=== PATIENT | female | born 1955 | race Caucasian/White ===

== ENCOUNTER → 2024-03-09 06:34 | Day surgery (SDC) | payer MEDICARE, OTHER, SELFPAY | LOC: GI 06:34 | PROVIDERS: ATTENDING PHYSICIAN Internal Medicine Gastroenterology | DX: Z12.11 Encounter for screening for malignant neoplasm of colon (principal); K63.5 Polyp of colon; K57.30 Diverticulosis of large intestine without perforation or abscess without bleeding; K64.8 Other hemorrhoids; Z86.010 Personal history of colon polyps | CPT/HCPCS: 45380; 88305 ==

== ENCOUNTER → 2024-04-17 06:51 | Outpatient (REF) | payer MEDICARE, OTHER, SELFPAY ==
[2024-04-17 08:10] LABS: ALT (SGPT) 17 U/L (0-35); AST (SGOT) 21 U/L (14-36); Albumin 4.8 g/dl (3.5-5.0); Alkaline Phosphatase 78 U/L (38-126); Blood Urea Nitrogen 21 mg/dl (7-17); Calcium 10.6 mg/dl (8.4-10.2); Carbon Dioxide 24 mmol/L (22-30); Chloride 109 mmol/L (98-107); Glucose 128 mg/dl (70-99); Potassium 4.4 mmol/L (3.5-5.1); Sodium 141 mmol/L (135-145); Total Bilirubin 0.5 mg/dl (0.2-1.3); Total Protein 7.5 g/dl (6.3-8.2); eGFR > 60.00
[2024-04-18 13:32] LABS: DHEA Sulfate 46 ug/dL (9-246)
[2024-04-18 17:42] LABS: Adrenocorticotropic Hormone <1.5 pg/mL (7.2-63.3)
== END ==
LOC: REG 06:51
PROVIDERS: ATTENDING PHYSICIAN Physician Assistant; FAMILY PHYSICIAN Physician Assistant Medical
DX: D35.02 Benign neoplasm of left adrenal gland (principal)
CPT/HCPCS: 36415; 80053; 82024; 82088; 82533; 82627; 83835; 84244

== ENCOUNTER → 2024-04-20 12:53 | Outpatient (REF) | payer MEDICARE, OTHER, SELFPAY | LOC: RAD 12:53 | PROVIDERS: ATTENDING PHYSICIAN Physician Assistant; FAMILY PHYSICIAN Family Medicine | DX: D35.02 Benign neoplasm of left adrenal gland (principal) | CPT/HCPCS: 74170; Q9967 ==

== ENCOUNTER → 2024-07-28 14:49 | Outpatient (REF) | payer MEDICARE, OTHER, SELFPAY ==
[2024-07-28 16:21] LABS: % Basophils 0.9 % (0-2); % Eosinophils 0.8 % (0-6); % Immature Granulocytes 0.3 % (0-0.5); % Lymphocytes 16.5 % (20.5-51.1); % Monocytes 6.4 % (1.7-9.3); % Neutrophils 75.1 % (42.2-75.2); Absolute Basophils 0.1 10^3/uL (0-0.2); Absolute Eosinophils 0.1 10^3/uL (0-0.7); Absolute Lymphocytes 1.5 10^3/uL (1.2-3.4); Absolute Monocytes 0.6 10^3/uL (0.1-0.6); Absolute Neutrophils 6.7 10^3/uL (1.4-6.5); Hematocrit 45.6 % (37.0-47.0); Hemoglobin 15.9 g/dL (12.0-16.0); Mean Corp Hgb Conc. 34.9 g/dL (33.0-37.0); Mean Corpuscular Hgb 29.7 pg (27.0-31.0); Mean Corpuscular Volume 85.1 fL (81.0-99.0); Mean Platelet Volume 10.2 fL (7.4-10.4); Nucleated Red Blood Cells % 0 %; Platelet Count 280 10^3/uL (130-400); Red Blood Cell Count 5.36 10^6/uL (4.20-5.40); Red Cell Dist. Width 14.6 % (11.5-14.5)
[2024-07-28 16:59] LABS: LDH 193 U/L (120-246); Uric Acid 5.1 mg/dl (2.5-6.2)
[2024-07-30 21:33] LABS: Erythropoietin (EPO) 6 mU/mL (4-27)
== END ==
LOC: REG 14:49
PROVIDERS: ATTENDING PHYSICIAN Nurse Practitioner Acute Care; FAMILY PHYSICIAN Physician Assistant Medical
DX: D75.1 Secondary polycythemia (principal); D47.1 Chronic myeloproliferative disease
CPT/HCPCS: 36415; 81270; 82668; 83615; 84550; 85025

== ENCOUNTER → 2024-11-24 12:02 | Outpatient (REF) | payer MEDICARE, OTHER, SELFPAY | LOC: MRI 3T 12:02 | PROVIDERS: ATTENDING PHYSICIAN Surgery; FAMILY PHYSICIAN Physician Assistant Medical | DX: Z85.528 Personal history of other malignant neoplasm of kidney (principal); N28.89 Other specified disorders of kidney and ureter | CPT/HCPCS: 74183; A9575 ==

== ENCOUNTER 2024-12-18 06:53 | Outpatient (REF) | payer MEDICARE, OTHER, SELFPAY ==
[2024-12-18] VITALS (8 sets, daily range): BP systolic 74–133; BP diastolic 69–93
[2024-12-18 07:29] LABS: INR 0.91; PT 12.6 Sec (11.4-14.6)
[2024-12-18 07:42] LABS: Hematocrit 47.8 % (37.0-47.0); Hemoglobin 16.6 g/dL (12.0-16.0); Mean Corp Hgb Conc. 34.7 g/dL (33.0-37.0); Mean Corpuscular Hgb 30.5 pg (27.0-31.0); Mean Corpuscular Volume 87.7 fL (81.0-99.0); Mean Platelet Volume 10.2 fL (7.4-10.4); Platelet Count 299 10^3/uL (130-400); Red Blood Cell Count 5.45 10^6/uL (4.20-5.40); Red Cell Dist. Width 14.6 % (11.5-14.5); White Blood Cell Count 7.1 10^3/uL (4.8-10.8)
== END 2024-12-18 12:35 | disposition home or self-care (01) ==
LOC: RADI 06:53
PROVIDERS: ATTENDING PHYSICIAN Physician Assistant; FAMILY PHYSICIAN Physician Assistant Medical; REFERRING PHYSICIAN Surgery
DX: C22.7 Other specified carcinomas of liver (principal); D68.8 Other specified coagulation defects
CPT/HCPCS: 88307; 36415; 47000; 71045; 77012; 85027; 85610; 88333; 88341; 88342; 88360; 99152; 99153

== ENCOUNTER → 2025-01-09 10:19 | Outpatient (REF) | payer MEDICARE, OTHER, SELFPAY ==
[2025-01-09 11:34] LABS: % Basophils 0.6 % (0-2); % Eosinophils 2.2 % (0-6); % Immature Granulocytes 0.3 % (0-0.5); % Lymphocytes 29.7 % (20.5-51.1); % Monocytes 8.7 % (1.7-9.3); % Neutrophils 58.5 % (42.2-75.2); Absolute Eosinophils 0.1 10^3/uL (0-0.7); Absolute Lymphocytes 1.9 10^3/uL (1.2-3.4); Absolute Monocytes 0.6 10^3/uL (0.1-0.6); Absolute Neutrophils 3.7 10^3/uL (1.4-6.5); Hematocrit 48.1 % (37.0-47.0); Hemoglobin 16.7 g/dL (12.0-16.0); Mean Corp Hgb Conc. 34.7 g/dL (33.0-37.0); Mean Corpuscular Hgb 30.7 pg (27.0-31.0); Mean Corpuscular Volume 88.4 fL (81.0-99.0); Mean Platelet Volume 10.6 fL (7.4-10.4); Nucleated Red Blood Cells % 0 %; Platelet Count 264 10^3/uL (130-400); Red Blood Cell Count 5.44 10^6/uL (4.20-5.40); Red Cell Dist. Width 14.7 % (11.5-14.5); White Blood Cell Count 6.3 10^3/uL (4.8-10.8)
[2025-01-09 12:30] LABS: ALT (SGPT) 28 U/L (0-35); AST (SGOT) 23 U/L (14-36); Albumin 4.7 g/dl (3.5-5.0); Alkaline Phosphatase 75 U/L (38-126); Blood Urea Nitrogen 15 mg/dl (7-17); Calcium 10.5 mg/dl (8.4-10.2); Carbon Dioxide 28 mmol/L (22-30); Chloride 106 mmol/L (98-107); Direct Bilirubin 0.2 mg/dl (0.0-0.4); Glucose 107 mg/dl (70-99); Potassium 3.8 mmol/L (3.5-5.1); Sodium 140 mmol/L (135-145); Total Bilirubin 0.6 mg/dl (0.2-1.3); Total Protein 7.6 g/dl (6.3-8.2); eGFR > 60.00
[2025-01-09 12:53] LABS: Hepatitis B Surface Antigen Negative (Negative)
[2025-01-09 12:54] LABS: AFP Male/Tumor Marker 2.24 ng/ml
[2025-01-09 13:11] LABS: Hepatitis B Core Ab, Total Negative (Negative); Hepatitis B Surface Antibody Negative; Hepatitis C Antibody Negative (Negative)
[2025-01-10 17:05] LABS: CA 19-9 40 U/mL (<=35)
== END ==
LOC: REG 10:19
PROVIDERS: ATTENDING PHYSICIAN Internal Medicine Hematology & Oncology; FAMILY PHYSICIAN Physician Assistant Medical; OTHER PHYSICIAN Internal Medicine Gastroenterology
DX: D75.1 Secondary polycythemia (principal); C22.1 Intrahepatic bile duct carcinoma; R97.0 Elevated carcinoembryonic antigen [CEA]
CPT/HCPCS: 36415; 80053; 82105; 82248; 82378; 85025; 86301; 86704; 86706; 86803; 87340

== ENCOUNTER 2025-01-22 06:20 | Day surgery (SDC) | payer MEDICARE, OTHER, SELFPAY | END 2025-01-22 13:31 | disposition home or self-care (01) | LOC: GI 06:20 | PROVIDERS: ATTENDING PHYSICIAN Internal Medicine Gastroenterology | DX: R93.3 Abnormal findings on diagnostic imaging of other parts of digestive tract (principal); K22.89 Other specified disease of esophagus; K44.9 Diaphragmatic hernia without obstruction or gangrene; K29.80 Duodenitis without bleeding; K29.70 Gastritis, unspecified, without bleeding; K20.90 Esophagitis, unspecified without bleeding | CPT/HCPCS: 43239; 88305; 88342 ==

== ENCOUNTER → 2025-04-16 12:00 | Outpatient (REF) | payer MEDICARE, OTHER, SELFPAY ==
[2025-04-16 13:38] LABS: % Basophils 1.1 % (0-2); % Eosinophils 4.7 % (0-6); % Immature Granulocytes 0.5 % (0-0.5); % Monocytes 10.3 % (1.7-9.3); % Neutrophils 59.4 % (42.2-75.2); Absolute Basophils 0.1 10^3/uL (0-0.2); Absolute Eosinophils 0.3 10^3/uL (0-0.7); Absolute Lymphocytes 1.5 10^3/uL (1.2-3.4); Absolute Monocytes 0.6 10^3/uL (0.1-0.6); Absolute Neutrophils 3.6 10^3/uL (1.4-6.5); Hematocrit 45.9 % (37.0-47.0); Hemoglobin 15.4 g/dL (12.0-16.0); Mean Corp Hgb Conc. 33.6 g/dL (33.0-37.0); Mean Corpuscular Hgb 30.3 pg (27.0-31.0); Mean Corpuscular Volume 90.4 fL (81.0-99.0); Mean Platelet Volume 11.3 fL (7.4-10.4); Nucleated Red Blood Cells % 0 %; Platelet Count 262 10^3/uL (130-400); Red Blood Cell Count 5.08 10^6/uL (4.20-5.40); Red Cell Dist. Width 17.8 % (11.5-14.5); White Blood Cell Count 6.1 10^3/uL (4.8-10.8)
[2025-04-16 15:50] LABS: ALT (SGPT) 116 U/L (0-35); AST (SGOT) 89 U/L (14-36); Albumin 4.3 g/dl (3.5-5.0); Alkaline Phosphatase 474 U/L (38-126); Blood Urea Nitrogen 14 mg/dl (7-17); Calcium 10.3 mg/dl (8.4-10.2); Carbon Dioxide 29 mmol/L (22-30); Chloride 109 mmol/L (98-107); Glucose 113 mg/dl (70-99); Potassium 4.4 mmol/L (3.5-5.1); Sodium 141 mmol/L (135-145); Total Bilirubin 1.5 mg/dl (0.2-1.3); Total Protein 7.4 g/dl (6.3-8.2); eGFR > 60.00
== END ==
LOC: REG 12:00
PROVIDERS: ATTENDING PHYSICIAN Surgery; FAMILY PHYSICIAN Physician Assistant Medical
DX: C22.9 Malignant neoplasm of liver, not specified as primary or secondary (principal); C24.9 Malignant neoplasm of biliary tract, unspecified
CPT/HCPCS: 36415; 80053; 85025

== ENCOUNTER 2025-08-06 06:32 | Day surgery (SDC) | payer MEDICARE, OTHER, SELFPAY ==
[2025-08-06] VITALS (11 sets, daily range): BP systolic 91–151; BP diastolic 54–88
[2025-08-06] MEDS: NORMOSOL-R/PLASMALYTE-A 1000 IV (11:38)
[2025-08-06] MEDS: DILAUDID 0.25 MG IV (14:35)
[2025-08-06] MEDS: DILAUDID 0.5 MG IV (14:48)
--- NOTE | 2025-08-06 16:04 | OR.RPT ---
Operative Report
Operative Report
Patient name: Wandy Villasenor
Date of : 1955

Date of operation: 08/06/2025
Preoperative diagnosis:
1. Tonsil asymmetry
2. Hypopharyngeal lesion
3. Vocal cord palsy
Postoperative diagnosis:
1. Tonsil asymmetry
2. Hypopharyngeal lesion
3. Vocal cord palsy
Operation/procedures performed:
1. Direct laryngoscopy with biopsy
2. Bronchoscopy, diagnostic
Surgeon: Luther Farooq DO
Anesthesia: General, 7.0 ETT
Anesthesiologist: Yoko
Surgical Indications: this is a 70-year-old woman who presented to the Otolaryngology Department with a chief complaint of hypopharyngeal lesion. The patient was recently undergoing an EGD in search of an aerodigestive and digestive tract primary
tumor in setting of her recently diagnosed liver cancer. Upon the conclusion of the esophagoscopy a papilloma like lesion was seen in the hypopharynx and she was referred to ENT for further evaluation and consideration of a biopsy. The patient
also has a history of bile duct carcinoma and has a prior history of right partial nephrectomy. She does not believe she was vaccinated against HPV when she was younger. She has no symptoms related to this papilloma like lesion. She is an active
smoker and has occasional alcohol use. We discussed the risks benefits and alternatives to observation versus proceeding to the operating room for diagnostic laryngoscopy with biopsy. After careful deliberation the patient excepted these risks
benefits and alternatives and provided informed written consent.
Details of Procedure: The patient was met in the preoperative holding area where informed written consent was reviewed and all questions were answered to the patient's satisfaction. The patient was then brought out to the operating room and
transferred supine on the operating room table. The patient was secured on the table. General anesthesia was induced and the patient was intubated orotracheally without difficulty using a 7.0 ETT. The table was rotated 90 degrees away from
anesthesia. Surgical timeout was performed confirm the necessary perioperative information. An operative dentition guard was placed to protect the teeth. A 3.8 mm flexible bronchoscope was then introduced to the endotracheal tube after being
disconnected from the ventilator circuit. The bronchoscope was advanced and the distal trachea, bilateral main bronchi, bilateral secondary and portions of the tertiary bronchi were visualized. There is an asymmetric and thick mucus collection in
one of the secondary bronchi of the right medial lobe of the lung. There did not appear to be an obvious mass here. Bronchoscope was then safely removed and ventilator circuit reconnected.
Next the direct laryngoscopy was performed. The right tonsil and right base of tongue were normal. The midline base of tongue was normal. The left base of tongue was normal. The left tonsil had an asymmetric rounded smooth surfaced-growth that
appeared similar to an office laryngoscopy several weeks prior. The vallecula and epiglottis were normal. The bilateral piriform sinuses were normal. The supraglottis including the aryepiglottic folds, false vocal folds and arytenoids were
normal. The true vocal folds were normal. Just to the right of midline on the posterior pharyngeal wall about a centimeter above the esophageal inlet was a 1 cm papilloma like lesion. The laryngoscope was suspended using the Lewy arm. An image
was taken using the flexible bronchoscope for documentation. A small micro forcep was used to grasp the lesion and a scissor angled to the left was used to excise this lesion en bloc off of the posterior pharyngeal wall. This was sent for
pathology. Next attention was turned toward the left tonsil where several biopsies were taken of the mass and sent for pathology. Hemostasis was achieved at both biopsy sites using Afrin soaked pledgets. Once hemostasis was confirmed these
pledgets were removed and counts were correct. This concluded the procedure. The table was rotated back to the anesthesia staff where she emerged from anesthesia safely and was extubated without difficulty. She was taken to the PACU in stable
condition.
Complications: None immediately present
Blood loss: 10cc
Disposition: Stable to PACU followed by discharge to home
== END 2025-08-06 16:30 | disposition home or self-care (01) ==
LOC: SDS 06:32
PROVIDERS: ATTENDING PHYSICIAN Student in an Organized Health Care Education/Training Program
DX: J38.00 Paralysis of vocal cords and larynx, unspecified (principal); D10.7 Benign neoplasm of hypopharynx; J35.8 Other chronic diseases of tonsils and adenoids; J39.2 Other diseases of pharynx
CPT/HCPCS: 31535; 88305; 88341; 88342

== ENCOUNTER → 2025-08-29 11:51 | Outpatient (REF) | payer MEDICARE, OTHER, SELFPAY | LOC: PAVMRI 11:51 | PROVIDERS: FAMILY PHYSICIAN Physician Assistant Medical | DX: C22.9 Malignant neoplasm of liver, not specified as primary or secondary (principal); C24.9 Malignant neoplasm of biliary tract, unspecified | CPT/HCPCS: 74183; A9575 ==